=== PATIENT | female | born 1985 | race Caucasian/White ===

== ENCOUNTER 2019-06-27 11:19 | Emergency (ER) | payer MEDICAID ==
[~2019-06-27] VITALS: Ht 165.1 cm; Wt 75.7 kg
[2019-06-27 11:24] VITALS: BP 159/86
--- NOTE | 2019-06-27 11:30 | NUR ---
C/O LRQ PAIN RADIATING TO LOWER R BACK 04/22 & SHARP X1 WEEK ACCOMPANIED BY FEVER/CHILLS & N/V. ABDOMEN SOFT, FLAT AND TENDER TO PALPATION NEAR RLQ. BOWEL SOUNDS PRESENT X4. LBM 06/26/19 & REGULAR PER PT. LMP 04/27/19, PT STATES SHE WAS TAKING CONTROL PILLS BUT DEVELOPED A DVT SO SHE STOPPED TAKING THEM IN APRIL 2019. BED IN LOW POSITION, SIDE RAIL UP X1. AT BEDSIDE. PT PROVIDED WITH GOWN AND PLACED ON BEDSIDE FIRMWARE MANAGER.
--- NOTE | 2019-06-27 11:32 | NUR ---
AMB TO BED 12 STEADY GAIT.
[2019-06-27] MEDS ORDERED: NACL 0.9% 1,000 ML IV ONE (11:45)
--- NOTE | 2019-06-27 11:55 | NUR ---
FLU SWAB COLLECTED AND HANDED TO RESEARCH AND DEVELOPMENT ENGINEER, RESEARCH AND DEVELOPMENT ENGINEER AT BEDSIDE DRAWING BLOOD
[2019-06-27 12:20] LABS: BASOPHILS % (AUTO) 0.2 % (0.0-2.0); EOSINOPHILS # (AUTO) 0.1 K/uL (0-0.4); EOSINOPHILS % (AUTO) 0.6 % (0.0-4.0); HEMATOCRIT 35.8 % (36-48); HEMOGLOBIN 11.6 g/dL (12.0-16.0); LYMPHOCYTES # (AUTO) 0.8 K/uL (2.5-16.5); LYMPHOCYTES % (AUTO) 9.5 % (20.5-51.1); MEAN CORPUSCULAR HEMOGLOBIN 29 pg (27-31); MEAN CORPUSCULAR HGB CONC 33 g/dL (33-37); MEAN CORPUSCULAR VOLUME 88.1 fL (80-94); MONOCYTES # (AUTO) 0.3 K/uL (0.8-1.0); MONOCYTES % (AUTO) 4.1 % (1.7-9.3); NEUTROPHILS # (AUTO) 7.3 K/uL (1.8-7.7); NEUTROPHILS % (AUTO) 85.6 % (42.2-75.2); PLATELET COUNT (AUTO) 279 K/uL (140-450); RED BLOOD CELL COUNT(AUTO) 4.06 MIL/uL (4.20-5.40); RED CELL DISTRIBUTION WIDTH 13.2 % (11.6-13.7); WHITE BLOOD COUNT (AUTO) 8.5 K/uL (4.8-10.8)
[2019-06-27 12:26] LABS: ANION GAP 14.4 (8-16); POTASSIUM 4.4 mmol/L (3.5-5.1)
[2019-06-27 12:59] LABS: APPEARANCE,URINE CLOUDY (CLEAR); BILIRUBIN,URINE NEGATIVE (NEGATIVE); BLOOD, URINE TRACE (NEGATIVE); COLOR,URINE YELLOW (YELLOW); LEUKOCYTE ESTERASE ,URINE 1+ (NEGATIVE); NITRITE, URINE POSITIVE (NEGATIVE); UGLUCOSE 3+ (NEGATIVE)
[2019-06-27 13:03] LABS: RBC,URINE 0-5 /HPF (0-5); WBC,URINE 60-80 /HPF (0-5)
[2019-06-27 13:53] VITALS: BP 115/65
--- NOTE | 2019-06-27 13:53 | NUR ---
Patient discharged with v/s stable. Written and verbal after care instructions given and explained. Patient alert, oriented and verbalized understanding of instructions. Ambulatory with steady gait. All questions addressed prior to discharge. ID band removed. Patient advised to follow up with PMD. Rx of MACROBID, TYLENOL given. Patient educated on indication of medication including possible reaction and side effects. Opportunity to ask questions provided and answered.
== END 2019-06-27 13:53 | disposition home or self-care (01) ==
LOC: MED 11:19
DX: O23.41 Unspecified infection of urinary tract in pregnancy, first trimester (principal); O24.419 Gestational diabetes mellitus in pregnancy, unspecified control; Z3A.01 Less than 8 weeks gestation of pregnancy; Z91.013 Allergy to seafood; Z86.718 Personal history of other venous thrombosis and embolism
CPT/HCPCS: 36415; 76801; 80048; 81001; 81025; 84702; 85025; 86900; 86901; 87086; 87186; 87804; 99284; Q0092

== ENCOUNTER 2019-07-05 23:51 | Emergency (ER) | payer MEDICAID ==
[~2019-07-05] VITALS: Ht 165.1 cm; Wt 76.2 kg
[2019-07-06 00:01] VITALS: BP 121/73
--- NOTE | 2019-07-06 00:10 | NUR ---
PT AMBULATED TO BED#3
--- NOTE | 2019-07-06 00:15 | NUR ---
33 Y/O FEMALE BIB SELF WITH C/O LOWER ABDOMINAL PAIN IN BOTH LOWER QUADRANTS THAT BEGAN X 1 DAY AGO. PT C/O 7/10 PAIN PROVOKED BY MOVEMENT. PT ALSO STATES SHE HAS SLIGHT BLEEDING THAT IS PINK IN COLOR. PT ADMITS TO BEING 5 WEEKS . URINE COLLECTED AND HCG POSITIVE. NO N/V/D. PT STATES SHE HAS GESTATIONAL DM BUT IS NOT TAKING ANY MEDICATIONS AT THIS TIME. PT RESTING IN BED, EYES OPEN. RESPIRATIONS ARE EVEN AND UNLABORED. SKIN IS WARM AND DRY TO TOUCH. VSS. FAMILY MEMBER AT BEDSIDE. MED HX: GESTATIONAL DIABETES ALLERGIES:SHRIMP
--- NOTE | 2019-07-06 00:30 | NUR ---
Dr. Lewis examining patient.
[2019-07-06 00:38] LABS: BASOPHILS % (AUTO) 0.4 % (0.0-2.0); EOSINOPHILS # (AUTO) 0.1 K/uL (0-0.4); EOSINOPHILS % (AUTO) 1.6 % (0.0-4.0); HEMATOCRIT 33.4 % (36-48); LYMPHOCYTES # (AUTO) 2.1 K/uL (2.5-16.5); LYMPHOCYTES % (AUTO) 22.4 % (20.5-51.1); MEAN CORPUSCULAR HEMOGLOBIN 29 pg (27-31); MEAN CORPUSCULAR HGB CONC 33 g/dL (33-37); MEAN CORPUSCULAR VOLUME 86.7 fL (80-94); MONOCYTES # (AUTO) 0.5 K/uL (0.8-1.0); MONOCYTES % (AUTO) 5.4 % (1.7-9.3); NEUTROPHILS # (AUTO) 6.5 K/uL (1.8-7.7); NEUTROPHILS % (AUTO) 70.2 % (42.2-75.2); PLATELET COUNT (AUTO) 351 K/uL (140-450); RED BLOOD CELL COUNT(AUTO) 3.85 MIL/uL (4.20-5.40); RED CELL DISTRIBUTION WIDTH 13.6 % (11.6-13.7); WHITE BLOOD COUNT (AUTO) 9.3 K/uL (4.8-10.8)
[2019-07-06 00:40] LABS: APPEARANCE,URINE SL CLOUDY (CLEAR); BILIRUBIN,URINE NEGATIVE (NEGATIVE); BLOOD, URINE TRACE-L (NEGATIVE); COLOR,URINE YELLOW (YELLOW); LEUKOCYTE ESTERASE ,URINE NEGATIVE (NEGATIVE); NITRITE, URINE NEGATIVE (NEGATIVE); UGLUCOSE NEGATIVE (NEGATIVE)
[2019-07-06 00:49] LABS: ANION GAP 13.1 (8-16); CARBON DIOXIDE 25.4 mmol/L (21-32); CREATININE 0.8 mg/dL (0.6-1.3); POTASSIUM 3.5 mmol/L (3.5-5.1)
[2019-07-06 01:06] LABS: RBC,URINE 0-5 /HPF (0-5); WBC,URINE 0-5 /HPF (0-5)
--- NOTE | 2019-07-06 01:35 | NUR ---
PT RESTING IN BED CALM AND PLEASANT. RESPIRATIONS EVEN AND UNLABORED. BED LOCKED IN LOW POSITION X 1 SIDERAIL. VSS. WILL CONTINUE TO MONITOR.
--- NOTE | 2019-07-06 01:36 | NUR ---
PT RETURN FROM ULTRASOUND
--- NOTE | 2019-07-06 02:28 | NUR ---
DR SOLOMON AT BEDSIDE.
[2019-07-06 02:34] VITALS: BP 121/73
--- NOTE | 2019-07-06 02:35 | NUR ---
Patient discharged with v/s stable. Written and verbal after care instructions given and explained. Patient verbalized understanding. Ambulatory with steady gait. All questions addressed prior to discharge. Advised to follow up with PMD.
== END 2019-07-06 02:35 | disposition home or self-care (01) ==
LOC: MED 23:51
DX: O20.8 Other hemorrhage in early pregnancy (principal); Z3A.01 Less than 8 weeks gestation of pregnancy; Z91.013 Allergy to seafood
CPT/HCPCS: 36415; 80048; 81001; 81025; 84702; 85025; 86900; 86901; 99283

== ENCOUNTER 2019-08-16 10:08 | Emergency (ER) | payer MEDICAID ==
[~2019-08-16] VITALS: Ht 165.1 cm; Wt 78.0 kg
[2019-08-16 10:20] VITALS: BP 127/77
--- NOTE | 2019-08-16 11:16 | NUR ---
Patient ambulated to bed 4. RN evaluating patient at bedside.
--- NOTE | 2019-08-16 11:53 | NUR ---
33YO F C/O ABDOMINAL PAIN X 1 DAY. PT DESCRIBES PAIN 6/10 CRAMPING/SORENESS. PT IS CURRENTLY 12 WEEKS . PT ALSO WITH DIARRHEA X 2 DAYS, LBM: 08/15/19. +HEADACHE, -URINARY SYMPTOMS, -VAGINAL BLEEDING. NO MEDS TAKEN. ABDOMEN SOFT, NON-TENDER WITH BOWEL SOUNDS ACTIVE ON ALL QUADS. FHT 190S. VSS; PATIENT POSITIONED FOR COMFORT; HOB ELEVATED; BEDRAILS UP X2; BED DOWN. ER MD MADE AWARE OF PT STATUS. ALLERGIES: SHRIMP PMH: HX OF
--- NOTE | 2019-08-16 13:17 | NUR ---
Dr. Vogel is evaluating the patient at bedside.
[2019-08-16 13:36] VITALS: BP 127/77
--- NOTE | 2019-08-16 13:37 | NUR ---
Patient discharged with v/s stable. Written and verbal after care instructions given and explained. Patient alert, oriented and verbalized understanding of instructions. Ambulatory with steady gait. All questions addressed prior to discharge. ID band removed. Patient advised to follow up with PMD. Rx of IMODIUM given. Patient educated on indication of medication including possible reaction and side effects. Opportunity to ask questions provided and answered.
== END 2019-08-16 13:37 | disposition home or self-care (01) ==
LOC: MED 10:08
DX: O26.891 Other specified pregnancy related conditions, first trimester (principal); R19.7 Diarrhea, unspecified; E11.9 Type 2 diabetes mellitus without complications; Z3A.12 12 weeks gestation of pregnancy; Z91.013 Allergy to seafood
CPT/HCPCS: 81002; 81025; 99283

== ENCOUNTER 2019-08-29 21:24 | Emergency (ER) | payer MEDICAID ==
[~2019-08-29] VITALS: Ht 165.1 cm; Wt 80.7 kg
[2019-08-29 21:39] VITALS: BP 110/68
--- NOTE | 2019-08-29 21:45 | NUR ---
PT AMBULATED TO BED #7
--- NOTE | 2019-08-29 22:05 | NUR ---
PT C/O NO MOVEMENT X3 DAYS; 14 WEEKS . DENIES VAGINAL BLEEDING. REPORTS BRIEF PERIOD OF LBP/ABD SORENESS /10 TODAY WHICH HAS SINCE RELIEVED. NAUSEOUS THROUGHOUT ; NOT TAKING ANYTHING FOR IT. PMH GESTATIONAL DM, RECENT URINE INFX STARTED UNKNOWN MEDICATION FOR IT TODAY. DENIES VOMITING OR DIARRHEA. RR EVEN AND UNLABORED, DENIES CP, ABD PAIN, N/V AT THE MOMENT. DENIES PROBLEMS WITH URINATION. VSS.
[2019-08-29] MEDS ORDERED: ACETAMINOPHEN EXTRA STRENGTH 500 MG TAB PO ONE (22:40)
[2019-08-29 23:31] LABS: BASOPHILS % (AUTO) 0.2 % (0.0-2.0); EOSINOPHILS # (AUTO) 0.1 K/uL (0-0.4); EOSINOPHILS % (AUTO) 1.4 % (0.0-4.0); HEMATOCRIT 33.4 % (36-48); HEMOGLOBIN 11.4 g/dL (12.0-16.0); LYMPHOCYTES % (AUTO) 23.7 % (20.5-51.1); MEAN CORPUSCULAR HEMOGLOBIN 29 pg (27-31); MEAN CORPUSCULAR HGB CONC 34 g/dL (33-37); MEAN CORPUSCULAR VOLUME 85.3 fL (80-94); MONOCYTES # (AUTO) 0.4 K/uL (0.8-1.0); MONOCYTES % (AUTO) 5.3 % (1.7-9.3); NEUTROPHILS # (AUTO) 5.9 K/uL (1.8-7.7); NEUTROPHILS % (AUTO) 69.4 % (42.2-75.2); PLATELET COUNT (AUTO) 190 K/uL (140-450); RED BLOOD CELL COUNT(AUTO) 3.92 MIL/uL (4.20-5.40); WHITE BLOOD COUNT (AUTO) 8.5 K/uL (4.8-10.8)
[2019-08-29 23:47] LABS: ALBUMIN 3.1 g/dL (3.4-5.0); ANION GAP 12.9 (8-16); CARBON DIOXIDE 25.7 mmol/L (21-32); CREATININE 0.5 mg/dL (0.6-1.3); POTASSIUM 3.6 mmol/L (3.5-5.1); TOTAL BILIRUBIN 0.2 mg/dL (0.0-1.0)
[2019-08-29 23:52] VITALS: BP 110/68
== END 2019-08-29 23:54 | disposition home or self-care (01) ==
LOC: MED 21:24
DX: O26.892 Other specified pregnancy related conditions, second trimester (principal); R10.9 Unspecified abdominal pain; E11.9 Type 2 diabetes mellitus without complications; Z91.013 Allergy to seafood; Z3A.14 14 weeks gestation of pregnancy
CPT/HCPCS: 36415; 76801; 80053; 81025; 84702; 85025; 86900; 86901; 99284; Q0092